=== PATIENT | male | born 1985 | race African-American/Black ===

== ENCOUNTER 2017-01-29 21:28 | Emergency (ER) | payer SELFPAY ==
[~2017-01-29] VITALS: Ht 165.1 cm; Wt 65.8 kg
[2017-01-29 21:42] VITALS: BP 144/73
[2017-01-29] MEDS ORDERED: BENZONATATE 100 MG CAPSULE. PO ONE (22:30)
[2017-01-29] MEDS ORDERED: predniSONE 20 MG TABLET PO ONE (22:30)
[2017-01-29] MEDS ORDERED: IPRATRPIUM/ALBUTEROL 0.5/2.5MG 3 ML NEBU. NEB ONE (22:30)
[2017-01-29] MEDS ORDERED: PRED50TA PO (23:06)
[2017-01-29] MEDS ORDERED: BENZ100C PO (23:06)
[2017-01-29] MEDS ORDERED: AZIT250T PO (23:06)
[2017-01-29] MEDS ORDERED: PROAIR RESPICL90 MCG IH (23:06)
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
== END 2017-01-29 23:21 | disposition home or self-care (01) ==
LOC: ER 21:28
DX: J20.9 Acute bronchitis, unspecified (principal); F17.200 Nicotine dependence, unspecified, uncomplicated
CPT/HCPCS: 94250; 94640; 99283; J7512; J7620